=== PATIENT | female | born 1960 | race Caucasian/White ===

== ENCOUNTER → 2016-10-03 | Outpatient (CLI) | payer BC ==
[2016-10-03 16:13] VITALS: BP 144/88
== END ==
LOC: MHUC 15:02
PROVIDERS: ATTEND Physician Assistant
DX: J01.00 Acute maxillary sinusitis, unspecified (principal); R03.0 Elevated blood-pressure reading, without diagnosis of hypertension; J30.2 Other seasonal allergic rhinitis
CPT/HCPCS: 99213

== ENCOUNTER → 2016-12-11 | Outpatient (CLI) | payer BC ==
[~2016-12-11] MED LIST: AGM500T PO; CPR500T PO; METH4TAB27 PO; PHEN-639 PO
[2016-12-11 09:12] LABS: BASOPHILS % (AUTO) 1 % (0-2); EOSINOPHILS # (AUTO) 0.3 10^3uL; EOSINOPHILS % (AUTO) 4 % (0-4); LYMPHOCYTES # (AUTO) 1.4 X10^3; MEAN CORPUSCULAR HGB CONC 34.2 g/dL (31.0-37.0); MEAN CORPUSCULAR VOLUME 94 FL (80-100); MEAN PLATELET VOLUME 10.1 FL (6.0-9.5); MONOCYTES # (AUTO) 0.5 X10^3; MONOCYTES % (AUTO) 9 % (3-11); NEUTROPHILS # (AUTO) 3.7 X10^3; NEUTROPHILS % (AUTO) 62 % (51-67); PLATELET COUNT 251 10^3uL (150-450); WHITE BLOOD COUNT 5.84 10^3uL (4.0-11.0)
[2016-12-11 09:17] LABS: MEAN CORPUSCULAR HEMOGLOBIN 32.3 PG (26.0-34.0)
[2016-12-11 09:29] LABS: ALBUMIN 3.9 g/dL (3.4-5.0); ANION GAP 15.4 MEQ/L (3-15); CALCULATED IONIZED CALCIUM 4.2 mg/dL (3.8-4.6); TOTAL PROTEIN 6.7 g/dL (6.4-8.5)
== END ==
LOC: LAB 08:15
PROVIDERS: ATTEND Internal Medicine Hematology & Oncology
DX: C50.411 Malignant neoplasm of upper-outer quadrant of right female breast (principal)
CPT/HCPCS: 36415; 80053; 85025

== ENCOUNTER → 2017-01-09 | Outpatient (CLI) | payer BC ==
--- NOTE | 2017-01-09 15:51 | Diagnostic Imaging Report ---
DIG DENI LT SCREENING W CAD COMPARISON: 12/30/2015, 01/03/2015, 12/28/2013 and 01/12/2013. INDICATION: Screening mammography. TECHNIQUE: Digital screening mammography was obtained with a computer-aided detection (CAD) system. FINDINGS: Status post right mastectomy. There are scattered fibroglandular densities in the left breast. The well-circumscribed ovoid isodense mass in the left breast has slightly increased in size but remains compatible with simple cyst as characterized by ultrasound of 12/30/2015. No new dominant mass, suspicious microcalcifications or architectural distortion to suggest malignancy. IMPRESSION: Increased size of simple cyst in the slightly lateral left breast. No evidence of malignancy. ACR BI-RADS Category 2: Benign findings. Result letter will be mailed to the patient. Note: At least 10% of breast cancer is not imaged by mammography. Dictated by: Dictated on workstation # [id number]
== END ==
LOC: RAD 09:56
PROVIDERS: ATTEND Internal Medicine Hematology & Oncology
DX: Z12.31 Encounter for screening mammogram for malignant neoplasm of breast (principal); N60.02 Solitary cyst of left breast